=== PATIENT | female | born 1985 | race Caucasian/White ===

== ENCOUNTER 2016-11-08 19:15 | Emergency (ER) | payer SELFPAY ==
--- NOTE | 2016-11-08 19:43 | Emergency Department Record ---
History of Present Illness - General Stated complaint: DENTAL PAIN Source: Patient Mode of Arrival: Ambulatory Limitations: No limitations - History of Present Illness Initial comments: 31 yo female presents to ED with a CC of worsening dental infection and facial swelling symptoms. Patient reports that she was seen by her dentist this morning for dental infection, underwent incision and drainage of the gingival region and was started on Amoxicillin for her symptoms. Patient was unable to undergo extraction of the tooth due to elevated blood sugar symptoms. Patient denies fevers, chills, or recent illness symptoms. Patient is IDDM since last year. MD complaint: Tooth pain Onset/Timin -: Days(s) Severity: Moderate Quality: Aching Consistency: Constant Improves with: None Worsens with: None Context- Dental: History of dental caries Associated Symptoms: Other (facial swelling) - Related Data Home Medications Medication Instructions Recorded Confirmed Last Taken Insulin Glargine,Hum.rec.anlog 10 unit SQ BID 11/08/16 11/08/16 11/08/16 [Lantus] Insulin Lispro [Humalog] 1 unit SQ TID 11/08/16 11/08/16 Unknown Allergies Allergy/AdvReac Type Severity Reaction Status Date / Time No Known Drug Allergies Allergy Verified 11/08/16 19:32 Review of Systems Constitutional: Denies: Chills, Fever, Malaise, Night sweats Eyes: Denies: Eye discharge, Eye pain ENT: Reports: Dental pain, Other (facial swelling). Denies: Congestion, Ear pain Respiratory: Denies: Cough, Dyspnea Cardiovascular: Denies: Chest pain, Dyspnea on exertion Endocrine: Denies: Fatigue, Heat or cold intolerance Gastrointestinal: Denies: Abdominal pain, Nausea, Vomiting Genitourinary: Denies: Incontinence, Retention Musculoskeletal: Denies: Arthralgia, Back pain, Gout, Joint swelling Skin: Denies: Bruising, Change in color Neurological: Denies: Abnormal gait, Confusion, Headache, Seizure Psychiatric: Denies: Anxiety Hematological/Lymphatic: Denies: Anemia, Blood Clots Physical Exam - General General Appearance: Alert, Oriented x3, Cooperative, Mild distress Limitations: No limitations - Head Head exam: Atraumatic Head exam detail: General tenderness, Other (STS to the right face infra- orbital region on examination). negative: Abrasion, Contusion, Shelton's sign, Hematoma, Laceration - Eye Eye exam: Periorbital swelling, Periorbital tenderness. negative: Conjunctival injection, Scleral icterus - ENT Ear exam: negative: Auricular hematoma, Auricular trauma Nasal Exam: negative: Active bleeding, Discharge, Dried blood, Foreign body Mouth exam: negative: Drooling, Laceration, Muffled voice, Tongue elevation Teeth exam: Dental caries, Dental tenderness # Throat exam: negative: R peritonsillar mass, L peritonsillar mass - Neck Neck exam: Normal inspection. negative: Meningismus, Tenderness - Respiratory Respiratory exam: Normal lung sounds bilaterally. negative: Rales, Respiratory distress, Rhonchi, Stridor - Cardiovascular Cardiovascular Exam: Normal rhythm, Normal heart sounds, Tachycardia - GI/Abdominal GI/Abdominal exam: Soft. negative: Rebound, Rigid, Tenderness - Rectal Rectal exam: Deferred - exam: Deferred - Extremities Extremities exam: Normal inspection. negative: Calf tenderness, Pedal edema, Tenderness - Back Back exam: Denies: CVA tenderness (R), CVA tenderness (L) - Neurological Neurological exam: Alert, Normal gait, Oriented X3 - Psychiatric Psychiatric exam: Normal affect, Normal mood - Skin Skin exam: Normal color. negative: Abrasion Type of lesion: negative: abrasion Course Vital Signs 11/08/16 19:25 Temperature 98.5 F Pulse Rate [ 125 H Pulse Ox Probe] Respiratory 24 Rate Blood Pressure 142/108 [Left Arm] Pulse Ox 97 - Reevaluation(s) Reevaluation #1: 11/08/16 20:06 Labs reviewed, Glucose 493, labs are otherwise grossly unremarkable for an acute process. Patient was updated on all results, will administer Insulin IV for hyperglycemia as well as patient will be receiving solumedrol in ED. Reevaluation #2: 11/08/16 20:24 Case was discussed with Dr. Wells, will accept transfer to [facility] for admission and further evaluation. Reevaluation #3: 11/08/16 20:39 Patient was updated on plan for transfer and agrees with plan as discussed. EMS called for transfer. Medical Decision Making - Lab Data Result diagrams: 11/08/16 19:40 11/08/16 19:40 Disposition Disposition: Transfer Clinical Impression: Dental caries, IDDM (insulin dependent diabetes mellitus) Disposition: Acute Care Hospital Transfer Transfer To: [facility] Reason For Transfer: [id number]-[id number] surgery consultation Accepting Physician: Munzer Time Discussed w/Accepting Physician: 20:25 Condition: (2) Stable Time of Disposition: 20:25 Quality - Quality Measures Quality Measures: N/A - Blood Pressure Screening Blood Pressure Classification: Hypertensive Reading Systolic Measurement: 126 Diastolic Measurement: 94 Screening for High Blood Pressure: < First Hypertensive BP, F/U Documented > [ G8950] First Hypertensive Follow-up Interventions: Referral to alternative/primary care provider.
[2016-11-08 19:48] LABS: BASO % 0.2 % (0-6); EOS % 1.2 % (0-6); GRAN % 69.8 % (47-80); HEMOGLOBIN 15.5 gm/dl (11.6-16.0); LYMPH % 21.3 % (16-45); MEAN CELL VOLUME 83.2 fl (81-97); MEAN PLATELET VOLUME 10.9 fl (7.4-10.4); MONO % 7.5 % (0-9); PLATELET COUNT 209 K/uL (130-400); RED BLOOD COUNT 5.17 M/uL (3.80-5.40); RED CELL DISTRIBUTION WIDTH 13.1 % (11.5-14.5); WHITE BLOOD COUNT W/O DIFF 10.7 K/uL (4.2-12.2)
[2016-11-08 20:00] LABS: ALB/GLOB RATIO 1.4 (1.1-1.8); ALBUMIN 4.9 gm/dL (3.5-5.0); ALKALINE PHOSPHATASE 172 U/L (38-126); ALT/SGPT 39 U/L (9-52); ANION GAP 13.5 (7-16); AST/SGOT 19 U/L (14-36); BILIRUBIN,TOTAL 0.93 mg/dL (0.2-1.3); BLOOD UREA NITROGEN 13 mg/dL (7-17); CARBON DIOXIDE 27.5 mmol/L (22-30); CREATININE 0.5 mg/dL (0.52-1.04); EST GLOMERULAR FILTRATION RATE > 60 ml/min; TOTAL PROTEIN 8.4 gm/dL (6.3-8.2)
[2016-11-08 20:06] LABS: GLUCOSE,RANDOM 493 mg/dL (70-110)
[2016-11-08] MEDS: CLINDAMYCIN 600MG/4ML VIAL 600 MG in 0.9 % SODIUM CHLORIDE 100ML 100 ML IV ONE (20:07)
[2016-11-08] MEDS: METHYLPREDNISOLONE PF 125MG/VIAL IVP SCH (20:07)
[2016-11-08] MEDS: 0.9 % SODIUM CHLORIDE 1000ML 1,000 ML IV SCH (20:09)
[2016-11-08] MEDS: HUMULIN R 100 UNIT/ML VIAL IV ONE (20:19)
== END 2016-11-08 21:18 | disposition short-term general hospital (02) ==
LOC: ER 19:15
DX: E11.65 Type 2 diabetes mellitus with hyperglycemia (principal); Z79.4 Long term (current) use of insulin; K02.9 Dental caries, unspecified
CPT/HCPCS: 36416; 80053; 82948; 85025; 96365; 96375; 99284; J2930; J7030

== ENCOUNTER 2017-02-01 22:07 | Inpatient (IN) | payer SELFPAY ==
--- NOTE | 2017-02-01 22:31 | Emergency Department Record ---
History of Present Illness - General Chief complaint: Hypergylcemia Stated complaint: SUGAR HIGH Time Seen by Provider: 02/01/17 22:26 Source: Patient Mode of Arrival: Ambulatory - History of Present Illness Initial comments: The patient states that since her insurance ran out about a week ago she has been without her short acting insulin. She has taken her long acting as before. She is experiencing weakness, nausea without vomiting and polydypsia/ polyuria. Her sugars have been showing in the 600's and "high" on her glucometer. She denies other problems such as f,c, cp, pravin, ap, st, cough. She has not had her period in months and doesn't know why. Accu-check on arrival show 543. She is a smoker. MD Complaint: Lack of energy Onset/Timin -: Week(s) - [place] Coma Scale Eye Response: (4) Open spontaneously Motor Response: (6) Obeys commands Verbal Response: (5) Oriented Ximena Total: 15 - Related Data Allergies Allergy/AdvReac Type Severity Reaction Status Date / Time No Known Drug Allergies Allergy Verified 11/08/16 19:32 Travel Screening - Travel/Exposure Within Last 30 Days Have you traveled within the last 30 days?: No - Travel/Exposure Within Last Year Have you traveled outside the [place] in the last year?: No - Additonal Travel Details Have you been exposed to anyone with a communicable illness?: No Review of Systems Reviewed: No additional complaints except as noted below Constitutional: Reports: As per HPI. Denies: Chills, Fever, Malaise, Night sweats, Weakness, Weight change Eyes: Reports: As per HPI. Denies: Eye discharge, Eye pain, Photophobia, Vision change ENT: Reports: As per HPI. Denies: Congestion, Dental pain, Ear pain, Epistaxis , Hearing loss, Throat pain Respiratory: Reports: As per HPI. Denies: Cough, Dyspnea, Hemoptysis, Stridor, Wheezes Cardiovascular: Reports: As per HPI. Denies: Arrhythmia, Chest pain, Dyspnea on exertion, Edema, Murmurs, Orthopnea, Palpitations, Paroxysmal nocturnal dyspnea, Rheumatic Fever, Syncope Endocrine: Reports: As per HPI. Denies: Fatigue, Heat or cold intolerance, Polydipsia, Polyuria Gastrointestinal: Reports: As per HPI. Denies: Abdominal pain, Constipation, Diarrhea, Hematemesis, Hematochezia, Melena, Nausea, Vomiting Genitourinary: Reports: As per HPI. Denies: Abnormal menses, Discharge, Dyspareunia, Dysuria, Frequency, Hematuria, Incontinence, Retention, Urgency Musculoskeletal: Reports: As per HPI. Denies: Arthralgia, Back pain, Gout, Joint swelling, Myalgia, Neck pain Skin: Reports: As per HPI. Denies: Bruising, Change in color, Change in hair/ nails, Lesions, Pruritus, Rash Neurological: Reports: As per HPI. Denies: Abnormal gait, Confusion, Headache, Numbness, Paresthesias, Seizure, Tingling, Tremors, Vertigo, Weakness Psychiatric: Reports: As per HPI. Denies: Anxiety, Auditory hallucinations, Depression, Homicidal thoughts, Suicidal thoughts, Visual hallucinations Hematological/Lymphatic: Reports: As per HPI. Denies: Anemia, Blood Clots, Easy bleeding, Easy bruising, Swollen glands Past Medical History - SOCIAL HISTORY Smoking Status: Light tobacco smoker (<10/day) Alcohol Use: None Drug Use: None - RESPIRATORY Hx Respiratory Disorders: No - CARDIOVASCULAR Hx Cardio Disorders: No - NEURO Hx Neuro Disorders: No - GI Hx GI Disorders: No - Hx Genitourinary Disorders: No - ENDOCRINE Hx Endocrine Disorders: Yes Hx Diabetes: Yes (DM1) - MUSCULOSKELETAL Hx Musculoskeletal Disorders: No - PSYCH Hx Psych Problems: No - HEMATOLOGY/ONCOLOGY Hx Hematology/Oncology Disorders: No Family Medical History Any Significant Family History?: Yes Hx Diabetes: Father *Diabetes Comment: DM1 Physical Exam - General General Appearance: Alert, Oriented x3, Cooperative, No acute distress - Head Head exam: Normal inspection - Eye Eye exam: Normal appearance, PERRL Pupils: Normal accommodation - ENT ENT exam: Normal exam, Mucous membranes moist, Normal external ear exam, Normal orophraynx, TM's normal bilaterally Ear exam: Normal external inspection. negative: External canal tenderness Nasal Exam: Normal inspection. negative: Discharge, Sinus tenderness Mouth exam: Normal external inspection, Tongue normal Teeth exam: Normal inspection. negative: Dental caries Throat exam: Normal inspection. negative: Tonsillar erythema, Tonsillar exudate - Neck Neck exam: Normal inspection, Full ROM. negative: Tenderness - Respiratory Respiratory exam: Normal lung sounds bilaterally. negative: Respiratory distress - Cardiovascular Cardiovascular Exam: Regular rate, Normal rhythm, Normal heart sounds - GI/Abdominal GI/Abdominal exam: Soft, Normal bowel sounds. negative: Tenderness - Rectal Rectal exam: Deferred - exam: Deferred - Extremities Extremities exam: Normal inspection, Full ROM, Normal capillary refill. negative: Tenderness - Back Back exam: Reports: Normal inspection, Full ROM. Denies: Muscle spasm, Rash noted, Tenderness - Neurological Neurological exam: Alert, CN II-XII intact, Normal gait, Oriented X3, Reflexes normal - Psychiatric Psychiatric exam: Normal affect, Normal mood - Skin Skin exam: Dry, Intact, Normal color, Warm Course Vital Signs 02/01/17 22:20 Temperature 98.3 F Pulse Rate [ 95 H Left Brachial] Respiratory 20 Rate Blood Pressure 123/88 [Left Arm] Pulse Ox 97 - Reevaluation(s) Reevaluation #1: Patient prefers to be admitted at this facility. Insulin drip at 3mg/kg/hr to be started after 2 liters NS infused. 02/02/17 00:00 Reevaluation #2: All vital signs have remained stable through out her visit. She is wishing water to drink and something for her mild headache. Nausea has improved. 02/02/17 00:04 Reevaluation #3: Repeat BS 359 prior to starting insulin drip around 12:30 a.m. 02/02/17 01:27 Medical Decision Making - Management Options MDM Management: Additional Work-up Planned (e.g. ADM/Transfer/OP Study) ( Admission for DKA.) - Data Complexity MDM Data: Labs Ordered and/or Reviewed, EKG Ordered and/or Reviewed - Lab Data Result diagrams: 02/01/17 22:30 02/02/17 01:00 - EKG Data -: EKG Interpreted by Mn EKG: No Acute Changes Disposition Disposition: Admit Clinical Impression: DKA, type 1 Qualifiers: Diabetes mellitus complication detail: without coma Qualified Code(s): E10.10 - Type 1 diabetes mellitus with ketoacidosis without coma Disposition: Still a Patient at [facility] Decision to Admit: Admit from ER Decision to Admit Date: 02/02/17 Decision to Admit Time: 00:02 Accepting Physician: Dr. Alexis Phipps/ FABIAN Xiong Time Discussed w/Accepting Physician: 06:30 Condition: (3) Guarded Forms: Patient Portal Access Quality - Quality Measures Quality Measures: N/A - Blood Pressure Screening Does Patient Have Any of the Following: No Blood Pressure Classification: Normal BP Reading Systolic Measurement: 116 Diastolic Measurement: 77 Screening for High Blood Pressure: < Normal BP, F/U Not Required > [G8783]
[2017-02-01] MEDS ORDERED: 0.9 % SODIUM CHLORIDE 1,000 ML BAG IV ONE (22:36)
[2017-02-01] MEDS ORDERED: ONDANSETRON HCL IV 4 MG/2 ML VIAL IVP ONE (22:36)
[2017-02-01 22:41] LABS: URINE APPEARANCE CLEAR; URINE BILIRUBIN NEGATIVE (NEGATIVE); URINE BLOOD TRACE-I (NEGATIVE); URINE COLOR YELLOW; URINE LEUKOCYTE ESTERASE NEGATIVE (NEGATIVE); URINE NITRITE NEGATIVE (NEGATIVE); URINE PROTEIN NEGATIVE (NEGATIVE); URINE UROBILINOGEN 0.2 E.U./dL (0.20 - 1.00)
[2017-02-01 22:46] LABS: BASO % 0.2 % (0-6); EOS % 0.4 % (0-6); GRAN % 75.4 % (47-80); HEMATOCRIT 44.8 % (35.0-47.0); HEMOGLOBIN 16.5 gm/dl (11.6-16.0); LYMPH % 20.3 % (16-45); MEAN CELL VOLUME 84.5 fl (81-97); MEAN CORPUSCULAR HEMOGLOBIN 31.1 pg (27-33); MEAN CORPUSCULAR HGB CONC 36.8 g/dl (32-36); MEAN PLATELET VOLUME 11.5 fl (7.4-10.4); MONO % 3.7 % (0-9); PLATELET COUNT 334 K/uL (130-400); RED CELL DISTRIBUTION WIDTH 12.5 % (11.5-14.5); WHITE BLOOD COUNT W/O DIFF 9.3 K/uL (4.2-12.2)
[2017-02-01 22:50] LABS: BARBITURATE SCREEN URINE NOT DETECTED; BENZODIAZEPINE SCREEN URINE NOT DETECTED; METHADONE SCREEN URINE DETECTED; TRICYCLIC ANTIDEPRESSANT SCRN NOT DETECTED
[2017-02-01 22:51] LABS: AMPHETAMINE SCREEN URINE NOT DETECTED; COCAINE SCREEN URINE NOT DETECTED; METHAMPHETAMINE SCREEN NOT DETECTED; OPIATE SCREEN URINE NOT DETECTED; OXYCODONE SCREEN URINE NOT DETECTED; PHENCYCLIDINE SCREEN URINE NOT DETECTED; PROPOXYPHENE SCREEN URINE NOT DETECTED; THC SCREEN URINE NOT DETECTED
[2017-02-01 22:57] LABS: URINE GLUCOSE (UA) >=1000 mg/dL (NEGATIVE)
[2017-02-01 22:58] LABS: URINE KETONE 80 mg/dL (NEGATIVE)
[2017-02-01 23:01] LABS: HCG,QUALITATIVE URINE NEGATIVE (NEGATIVE); URINE EPITHELIAL CELLS 0 - 2 (FEW); URINE RBC 0 - 2 (NONE SEEN); URINE WBC 0 - 2 (0-2/hpf)
[2017-02-01 23:04] LABS: ALB/GLOB RATIO 1.3 (1.1-1.8); ALKALINE PHOSPHATASE 178 U/L (35-104); ALT/SGPT 15 U/L (<33); AST/SGOT 24 U/L (10.0-35.0); BLOOD UREA NITROGEN 20 mg/dL (6-20); CREATININE 0.8 mg/dL (0.5-0.9); EST GLOMERULAR FILTRATION RATE > 60 mL/min; TOTAL PROTEIN 8.9 g/dL (6.6-8.7)
[2017-02-01 23:10] LABS: GLUCOSE,RANDOM 589 mg/dL (74-109)
[2017-02-01 23:24] LABS: ACETONE,SERUM POSITIVE (NEGATIVE)
[2017-02-01] MEDS ORDERED: HUMULIN R 100 UNIT/ML VIAL SQ ONE (23:28)
[2017-02-01] MEDS ORDERED: POTASSIUM CHL 20MEQ IN 1L NS 20 MEQ in 0.9 % SODIUM CHLORIDE 1000ML 1 BAG IV ONE ×2 (23:29)
[2017-02-01] MEDS ORDERED: INSULIN REGULAR, HUMAN 100 UNIT in 0.9 % SODIUM CHLORIDE 100ML 100 ML IV SCH ×4 (23:30→23:55)
[2017-02-02] MEDS ORDERED: ACETAMINOPHEN 325 MG TAB PO ONE (00:05)
[2017-02-02 01:32] LABS: ACETONE,SERUM POSITIVE (NEGATIVE)
[2017-02-02 01:38] LABS: BLOOD UREA NITROGEN 16 mg/dL (6-20); CREATININE 0.7 mg/dL (0.5-0.9); EST GLOMERULAR FILTRATION RATE > 60 mL/min; GLUCOSE,RANDOM 353 mg/dL (74-109)
[2017-02-02] MEDS ORDERED: ACETAMINOPHEN 325 MG TAB PO PRN (02:07)
[2017-02-02] MEDS ORDERED: ONDANSETRON HCL IV 4 MG/2 ML VIAL IVP PRN (02:07)
[2017-02-02] MEDS: POTASSIUM CHLORIDE/D5-0.45NACL 20 MEQ/1,000 ML BAG IV SCH ×2 (02:12→11:50)
[2017-02-02] MEDS ORDERED: FLU VAC QS 2017-18 (INPT, 6MO+) 60MCG/0.5ML IM ONE (02:36)
[2017-02-02 03:36] LABS: ACETONE,SERUM POSITIVE (NEGATIVE)
[2017-02-02 03:45] LABS: BLOOD UREA NITROGEN 15 mg/dL (6-20); CREATININE 0.6 mg/dL (0.5-0.9); EST GLOMERULAR FILTRATION RATE > 60 mL/min; GLUCOSE,RANDOM 254 mg/dL (74-109)
[2017-02-02 05:28] LABS: ACETONE,SERUM POSITIVE (NEGATIVE)
[2017-02-02 06:38] LABS: BLOOD UREA NITROGEN 14 mg/dL (6-20); CREATININE 0.6 mg/dL (0.5-0.9); EST GLOMERULAR FILTRATION RATE > 60 mL/min; GLUCOSE,RANDOM 233 mg/dL (74-109)
[2017-02-02 07:41] LABS: ACETONE,SERUM POSITIVE (NEGATIVE)
[2017-02-02] MEDS: 0.9 % SODIUM CHLORIDE 1000ML 1,000 ML IV PRN ×3 (08:00→23:10)
[2017-02-02 08:05] LABS: BLOOD UREA NITROGEN 13 mg/dL (6-20); CREATININE 0.6 mg/dL (0.5-0.9); EST GLOMERULAR FILTRATION RATE > 60 mL/min; GLUCOSE,RANDOM 195 mg/dL (74-109)
[2017-02-02 10:37] LABS: BLOOD UREA NITROGEN 13 mg/dL (6-20); CREATININE 0.5 mg/dL (0.5-0.9); EST GLOMERULAR FILTRATION RATE > 60 mL/min; GLUCOSE,RANDOM 141 mg/dL (74-109)
[2017-02-02 10:43] LABS: ACETONE,SERUM POSITIVE (NEGATIVE)
[2017-02-02] MEDS: NOVOLOG FLEXPEN (INSULIN ASPART) 100 UNITS/ML SQ SCH ×2 (11:35→16:57)
[2017-02-02] MEDS: METHADONE HCL 5 MG TABLET PO SCH (15:57)
[2017-02-02] MEDS ORDERED: HUMULIN R 100 UNIT/ML VIAL SC ONE (22:00)
[2017-02-02] MEDS: LEVEMIR FLEXTOUCH 100 UNIT/ML INSULIN PEN SQ SCH (22:15)
--- NOTE | 2017-02-03 07:20 | RADIOLOGY REPORT ---
EXAM: CHEST, TWO VIEWS HISTORY: CHEST PAIN. TECHNIQUE: Frontal and lateral views of the chest were obtained. Comparison: None. FINDINGS: The heart size is normal. The lungs are clear. No pneumothorax. IMPRESSION: NEGATIVE CHEST EXAMINATION. JOB NUMBER: [id number] MTDD
[2017-02-03] MEDS: 0.9 % SODIUM CHLORIDE 1000ML 1,000 ML IV PRN (07:30)
[2017-02-03] MEDS: NOVOLOG FLEXPEN (INSULIN ASPART) 100 UNITS/ML SQ SCH ×2 (08:06→12:41)
[2017-02-03] MEDS: METHADONE HCL 5 MG TABLET PO SCH (10:39)
[2017-02-03] MEDS: LEVEMIR FLEXTOUCH 100 UNIT/ML INSULIN PEN SQ SCH (10:40)
[2017-02-03 11:30] LABS: ALB/GLOB RATIO 1.3 (1.1-1.8); ALBUMIN 3.1 g/dL (4.0-5.0); ALKALINE PHOSPHATASE 88 U/L (35-104); ALT/SGPT 8 U/L (<33); AST/SGOT 12 U/L (10.0-35.0); BLOOD UREA NITROGEN 12 mg/dL (6-20); CREATININE 0.4 mg/dL (0.5-0.9); EST GLOMERULAR FILTRATION RATE > 60 mL/min; GLUCOSE,RANDOM 242 mg/dL (74-109); TOTAL PROTEIN 5.4 g/dL (6.6-8.7)
--- NOTE | 2017-02-03 14:53 | History & Physical ---
History of Present Illness - Date of Service Date of Service for History & Physical: 02/02/17 - History of Present Illness Admitting Diagnosis: DKA History of Present Illness: 31yo female with CC of weakness. She has history of Type 1 Diabetes mellitus diagnosed at age 30, heroin addiction currently receiving medication assisted therapy at methadone clinic, and is a smoker. The patient states that since her insurance ran out about a week ago she has been without her short acting insulin. She has taken her long acting as before. She is experiencing weakness, nausea without vomiting and polydypsia/ polyuria. Her sugars have been showing in the 600's and "high" on her glucometer. She denies other problems such as cp, pravin, ap, st, cough. While in the ED, patient had EKG that showed left atrial enlargement but no other changes. Her first CMP returned with significant abnormalities. Her Glucose was 589. Sodium 128, potassium 5.1, Chloride 84, bicarb 13, AG 31. Venous ph was low at 7.01 and urine was positive for acetone. Her lactic acid was also elevated at 2.4. She had a CXR which was negative and urine was negative for infection, but was positive for ketones, glucose. Patient received a 15units of regular insulin along with 2L NS prior to starting insulin drip at 3mg/kg/hr. She was admitted for DKA. 02/02/17- Patient reports feeling much better today. she says she no longer feels weak or nauseated. she is starting to get hungry and would like to eat. She says prior to coming in she was very thirsty and having to urinate very frequently. These have improved significantly. She denies any chest pain, shortness of breath, headache or confusion. Says she only recently found out she was diabetic last year. She says she had testing done to confirm that she is a type 1 diabetic. She was previously on medicaid but says it "shut off" randomly about 3 weeks ago and she couldn't get her novolog. Has plenty of lantus at home and has been taking her 15units twice daily. She does follow at the methadone clinic for heroin addiction and denies missing any days. [place] [facility] [place] - Travel/Exposure Within Last 30 Days Have you traveled within the last 30 days?: No - Travel/Exposure Within Last Year Have you traveled outside the [place] in the last year?: No - Additonal Travel Details Have you been exposed to anyone with a communicable illness?: No - Travel Symptoms Symptom Screening: None Review of Systems Constitutional: Reports: As per HPI. Denies: Chills, Fever, Malaise, Night sweats, Weakness, Weight change Eyes: Reports: As per HPI. Denies: Eye discharge, Eye pain, Photophobia, Vision change ENT: Reports: As per HPI. Denies: Congestion, Dental pain, Ear pain, Epistaxis , Hearing loss, Throat pain Respiratory: Reports: As per HPI. Denies: Cough, Dyspnea, Hemoptysis, Stridor, Wheezes Cardiovascular: Reports: As per HPI. Denies: Arrhythmia, Chest pain, Dyspnea on exertion, Edema, Murmurs, Orthopnea, Palpitations, Paroxysmal nocturnal dyspnea, Rheumatic Fever, Syncope Endocrine: Reports: As per HPI. Denies: Fatigue, Heat or cold intolerance, Polydipsia, Polyuria Gastrointestinal: Reports: As per HPI. Denies: Abdominal pain, Constipation, Diarrhea, Hematemesis, Hematochezia, Melena, Nausea, Vomiting Genitourinary: Reports: As per HPI. Denies: Abnormal menses, Discharge, Dyspareunia, Dysuria, Frequency, Hematuria, Incontinence, Retention, Urgency Musculoskeletal: Reports: As per HPI. Denies: Arthralgia, Back pain, Gout, Joint swelling, Myalgia, Neck pain Skin: Reports: As per HPI. Denies: Bruising, Change in color, Change in hair/ nails, Lesions, Pruritus, Rash Neurological: Reports: As per HPI. Denies: Abnormal gait, Confusion, Headache, Numbness, Paresthesias, Seizure, Tingling, Tremors, Vertigo, Weakness Psychiatric: Reports: As per HPI. Denies: Anxiety, Auditory hallucinations, Depression, Homicidal thoughts, Suicidal thoughts, Visual hallucinations Hematological/Lymphatic: Reports: As per HPI. Denies: Anemia, Blood Clots, Easy bleeding, Easy bruising, Swollen glands Past Medical History - SOCIAL HISTORY Smoking Status: Light tobacco smoker (<10/day) - RESPIRATORY Hx Respiratory Disorders: No - CARDIOVASCULAR Hx Cardio Disorders: No - NEURO Hx Neuro Disorders: No - GI Hx GI Disorders: No - Hx Genitourinary Disorders: No - ENDOCRINE Hx Endocrine Disorders: Yes Hx Diabetes: Yes (DM1) - MUSCULOSKELETAL Hx Musculoskeletal Disorders: No - PSYCH Hx Psych Problems: No - HEMATOLOGY/ONCOLOGY Hx Hematology/Oncology Disorders: No Family Medical History Any Significant Family History?: Yes Hx Diabetes: Father *Diabetes Comment: DM1 H&P Meds/Allergies - Allergies Allergies: Allergies Allergy/AdvReac Type Severity Reaction Status Date / Time No Known Drug Allergies Allergy Verified 11/08/16 19:32 - Home Medications Previous Rx's Medication Instructions Recorded Blood Sugar Diagnostic [Glucose 1 each QID #120 strip 02/03/17 Test Strip] Insulin Regular, Human [Novolin R] 1 unit SQ TIDINS #1 vial 02/03/17 Methadone HCl [Dolophine] 10 mg PO DAILY tablet 02/03/17 Syringe and Needle,Insulin,1Ml 1 each QID #120 disp.syrin 02/03/17 [Insulin Syringe] - Active Medications Active Medications: Current Medications Acetaminophen (Tylenol 325mg) 650 mg PO Q6H PRN PRN Reason: Pain - General Sodium Chloride () 1,000 mls @ 125 mls/hr IV .Q8H PRN PRN Reason: LARGE VOLUME IV Last Admin: 02/03/17 07:30 Dose: 125 mls/hr Insulin Aspart (Novolog Flexpen) 1 unit SQ TIDINS JESSICA PRN Reason: Protocol Last Admin: 02/03/17 12:41 Dose: 6 unit Insulin Detemir (Levemir Flextouch) 15 unit SQ BID COUNTS INCLUDE 234 BEDS AT THE [facility] Last Admin: 02/03/17 10:40 Dose: 15 unit Methadone HCl (Dolophine) 10 mg PO DAILY COUNTS INCLUDE 234 BEDS AT THE [facility] Stop: 02/09/17 10:01 Last Admin: 02/03/17 10:39 Dose: 10 mg Ondansetron HCl (Zofran) 4 mg IVP Q8H PRN PRN Reason: NAUSEA Physical Exam - Vital Signs Vital Signs: Vital Signs - Last 24 Hrs Temp Pulse Pulse Resp BP BP Pulse Ox 02/03/17 09:53 97.8 F 105/71 02/03/17 09:00 70 67 16 02/03/17 08:30 97.8 F 67 16 105/71 97 02/03/17 06:00 97.6 F 57 L 16 110/73 95 02/02/17 21:00 72 72 16 02/02/17 20:11 97.7 F 65 16 90/61 97 02/02/17 15:30 98.0 F 71 18 110/61 98 - General General Appearance: Alert, Oriented x3, Cooperative, No acute distress - Head Head exam: Normal inspection - Eye Eye exam: Normal appearance, PERRL Pupils: Normal accommodation - ENT ENT exam: Normal exam, Mucous membranes moist, Normal external ear exam, Normal orophraynx, TM's normal bilaterally Ear exam: Normal external inspection. negative: External canal tenderness Nasal Exam: Normal inspection. negative: Discharge, Sinus tenderness Mouth exam: Normal external inspection, Tongue normal Teeth exam: Normal inspection. negative: Dental caries Throat exam: Normal inspection. negative: Tonsillar erythema, Tonsillar exudate - Neck Neck exam: Normal inspection, Full ROM. negative: Tenderness - Respiratory Respiratory exam: Normal lung sounds bilaterally. negative: Respiratory distress - Cardiovascular Cardiovascular Exam: Regular rate, Normal rhythm, Normal heart sounds - GI/Abdominal GI/Abdominal exam: Soft, Normal bowel sounds. negative: Tenderness - Rectal Rectal exam: Deferred - exam: Deferred - Extremities Extremities exam: Normal inspection, Full ROM, Normal capillary refill. negative: Tenderness - Back Back exam: Reports: Normal inspection, Full ROM. Denies: Muscle spasm, Rash noted, Tenderness - Neurological Neurological exam: Alert, CN II-XII intact, Normal gait, Oriented X3, Reflexes normal - Psychiatric Psychiatric exam: Normal affect, Normal mood - Skin Skin exam: Dry, Intact, Normal color, Warm Results - Labs Result Diagrams: 02/01/17 22:30 02/03/17 11:00 Labs Last 24 Hours: Laboratory Results - last 24 hr 02/02/17 02/02/17 02/02/17 08:07 16:55 22:00 Sodium Potassium Chloride Carbon Dioxide Anion Gap BUN Creatinine Estimated GFR POC Glucose Cancelled 432 H 354 H Random Glucose Calcium Total Bilirubin AST ALT Alkaline Phosphatase Total Protein Albumin Globulin Albumin/Globulin Ratio 02/03/17 02/03/17 02/03/17 07:19 10:00 11:00 Sodium 139 Potassium 3.8 Chloride 105 Carbon Dioxide 27.0 Anion Gap 7.0 BUN 12 Creatinine 0.4 L Estimated GFR > 60 POC Glucose 175 H Cancelled Random Glucose 242 H Calcium 7.6 L Total Bilirubin 0.20 AST 12 ALT 8 Alkaline Phosphatase 88 Total Protein 5.4 L Albumin 3.1 L Globulin 2.3 Albumin/Globulin Ratio 1.3 - Imaging and Cardiology CT scan - abdomen Status: Report reviewed Chest x-ray Status: Report reviewed VTE H&P Assessment - Risk for VTE Risk for VTE: Yes Risk Level: Very Low Risk Assessment Date: 02/02/17 Risk Assessment Time: 11:00 VTE Orders Placed or Will Be Placed: Yes Plan - Inpatient Certification Inpatient Certification: Admit to inpatient care: Based on my medical assessment, after consideration of patient's risk factors (age, co-morbidities and patient presenting symptoms and acuity), I expect that this patient will remain in the hospital greater than or equal to two midnights and that the services needed warrant inpatient care because: Patient Risk Factors: [Diabetic ketoacidosis, problem with health insurance] Estimated length of stay: [48-72h] The patient may reasonably be expected to be discharged or transferred to a hospital within 96 hours after admission to [facility]. Services needed: [Insulin drip, IV fluids, social work consultation] Post hospital care (if known): [] I certify that my determination is in accordance with my understanding of Medicare requirements for reasonable and necessary inpatient services. 02/03/17 20:14 - Detailed Diagnosis and Plan (1) DKA, type 1 Status: Acute Qualifiers: Diabetes mellitus complication detail: without coma Qualified Code(s): E10.10 - Type 1 diabetes mellitus with ketoacidosis without coma Base Code: E10.10 - TYPE 1 DIABETES MELLITUS WITH KETOACIDOSIS WITHOUT COMA Comment: 02/02/17- resolving DKA. Had insulin drip throughout the night until BG dropped below 250. fluids were changed per protocol. Her CMP has improved significantly. AG closed at 13 this morning, bicarb up to 19 from 13. Her sodium is up to 133 and her potassium dropped from 5.1 to 4.4. Lactic acid down to 1.1. BG is stable under 200. polydipsia/polyuria and nausea have all resolved. -transition to sliding scale novolog TID with meals -continue her lantus 15 units BID -continue NS at 125cc/hr -advance diet to ADA -continue to monitor vitals q8H -repeat labs qam -social work consulted to discuss insurance issues. (2) Long-term current use of methadone for opiate dependence Status: Acute Base Code: F11.20 - OPIOID DEPENDENCE, UNCOMPLICATED Comment: 02/02/17- Currently receiving MAT from methadone clinic in [place]. She was unable to find someone to bring her medication from the clinic so therefore we will continue her current dose daily to avoid withdrawal. -methadone 10mg po daily. -she will continue going to the clinic upon discharge (3) DVT prophylaxis Status: Acute Base Code: [id number] - Comment: 02/02/17- patient is low risk for dvt -will encourage ambulation (4) Full code status Status: Acute Base Code: Z78.9 - OTHER SPECIFIED HEALTH STATUS Comment: - patient is full code
--- NOTE | 2017-02-03 15:00 | Discharge Summary ---
Providers Discharge Summary Date: 02/03/17 Date of admission: 02/02/17 01:52 Expected Date of Discharge: 02/03/17 Attending physician: Brett Phipps Consults: Consult Orders 02/02/17 07:12 Consult - Case Management Now Comment: Reason For Exam: lost medicaid Physical Exam - Vital Signs Vital Signs: Vital Signs - Last 24 Hrs Temp Pulse Pulse Resp BP BP Pulse Ox 02/03/17 09:53 97.8 F 105/71 02/03/17 09:00 70 67 16 02/03/17 08:30 97.8 F 67 16 105/71 97 02/03/17 06:00 97.6 F 57 L 16 110/73 95 02/02/17 21:00 72 72 16 02/02/17 20:11 97.7 F 65 16 90/61 97 02/02/17 15:30 98.0 F 71 18 110/61 98 - General General Appearance: Alert, Oriented x3, Cooperative, No acute distress - Head Head exam: Normal inspection - Eye Eye exam: Normal appearance, PERRL Pupils: Normal accommodation - ENT ENT exam: Normal exam, Mucous membranes moist, Normal external ear exam, Normal orophraynx, TM's normal bilaterally Ear exam: Normal external inspection. negative: External canal tenderness Nasal Exam: Normal inspection. negative: Discharge, Sinus tenderness Mouth exam: Normal external inspection, Tongue normal Teeth exam: Normal inspection. negative: Dental caries Throat exam: Normal inspection. negative: Tonsillar erythema, Tonsillar exudate - Neck Neck exam: Normal inspection, Full ROM. negative: Tenderness - Respiratory Respiratory exam: Normal lung sounds bilaterally. negative: Respiratory distress - Cardiovascular Cardiovascular Exam: Regular rate, Normal rhythm, Normal heart sounds - GI/Abdominal GI/Abdominal exam: Soft, Normal bowel sounds. negative: Tenderness - Rectal Rectal exam: Deferred - exam: Deferred - Extremities Extremities exam: Normal inspection, Full ROM, Normal capillary refill. negative: Tenderness - Back Back exam: Reports: Normal inspection, Full ROM. Denies: Muscle spasm, Rash noted, Tenderness - Neurological Neurological exam: Alert, CN II-XII intact, Normal gait, Oriented X3, Reflexes normal - Psychiatric Psychiatric exam: Normal affect, Normal mood - Skin Skin exam: Dry, Intact, Normal color, Warm Hospitalization - Hospitalization Admission Diagnosis: DKA - Problem List/Discharge Diagnosis (1) DKA, type 1 Status: Acute Discharge Diagnosis: Diabetes mellitus complication detail: without coma Qualified Code(s): E10.10 - Type 1 diabetes mellitus with ketoacidosis without coma Base Code: E10.10 - TYPE 1 DIABETES MELLITUS WITH KETOACIDOSIS WITHOUT COMA Comment: 02/03/17- DKA resolved. AG of 12 this morning. Bicarb normalized at 27. sodium, potassium and chloride have all returned to normal range. MLC of DKA is her running out of novolog for past 3 weeks. no evidence of infection on CXR or UA. -will plan to discharge home today. Social work met with patient and she has follow up at PCP on and will be meeting with someone in their office to get her medicaid set back up. -contacted [facility] and Novolin R is only $24 a vial and patient is willing and able to pay this amount until she can get her insurance coverage back in order. she has plenty of lantus at home -new scripts for Novolin R TID along with sliding scale, syringes with needles and test strips sent to [facility]. has lancets and meter at home. -continue her lantus 15 units BID -board certified orthodontist met with patient and provided her with handouts on diabtetic diet. asked patient to find out if her pcp could refer her to classes or to a board certified orthodontist as mani once insurance is active. -follow up on with pcp as scheduled (2) DVT prophylaxis Status: Acute Base Code: [id number] - Comment: 02/03/17- patient is low risk for dvt -will encourage ambulation (3) Full code status Status: Acute Base Code: Z78.9 - OTHER SPECIFIED HEALTH STATUS Comment: - patient is full code (4) Long-term current use of methadone for opiate dependence Status: Acute Base Code: F11.20 - OPIOID DEPENDENCE, UNCOMPLICATED Comment: 02/03/17- Currently receiving MAT from methadone clinic in [place]. -methadone 10mg po daily. Gave her dose for today since she will not be able to make it to the clinic by the time she is discharged. -she will continue going to the clinic resuming tomorrow. - Hospitalization Course Disposition: Home, Self-Care Hospital Course: 31yo female with CC of weakness. She has history of Type 1 Diabetes mellitus diagnosed at age 30, heroin addiction currently receiving medication assisted therapy at methadone clinic, and is a smoker. The patient states that since her insurance ran out about a week ago she has been without her short acting insulin. She has taken her long acting as before. She is experiencing weakness, nausea without vomiting and polydypsia/ polyuria. Her sugars have been showing in the 600's and "high" on her glucometer. She denies other problems such as cp, pravin, ap, st, cough. While in the ED, patient had EKG that showed left atrial enlargement but no other changes. Her first CMP returned with significant abnormalities. Her Glucose was 589. Sodium 128, potassium 5.1, Chloride 84, bicarb 13, AG 31. Venous ph was low at 7.01 and urine was positive for acetone. Her lactic acid was also elevated at 2.4. She had a CXR which was negative and urine was negative for infection, but was positive for ketones, glucose. Patient received a 15units of regular insulin along with 2L NS prior to starting insulin drip at 3mg/kg/hr. She was admitted for DKA. 02/02/17- Patient reports feeling much better today. she says she no longer feels weak or nauseated. she is starting to get hungry and would like to eat. She says prior to coming in she was very thirsty and having to urinate very frequently. These have improved significantly. She denies any chest pain, shortness of breath, headache or confusion. Says she only recently found out she was diabetic last year. She says she had testing done to confirm that she is a type 1 diabetic. She was previously on medicaid but says it "shut off" randomly about 3 weeks ago and she couldn't get her novolog. Has plenty of lantus at home and has been taking her 15units twice daily. She does follow at the methadone clinic for heroin addiction and denies missing any days. 02/03/17- Patient states she is feeling really good today. she says she has had no nausea, abdominal pain, chest pain, thirst or frequent urination. She is hopeful to go home today pcp: [facility] in [place] Abnormal Labs: Abnormal Lab Results 02/02/17 02/02/17 02/02/17 Range/Units 02:00 03:20 03:20 VBG pH 7.27 L (7.33-7.43) Sodium 135 L (136-145) mmol/L Carbon Dioxide 18.0 L (22-29) mmol/L Anion Gap 18.0 H (7-16) Creatinine (0.5-0.9) mg/dL POC Glucose 249 H (70-110) mg/dL Random Glucose 254 H (74-109) mg/dL Calcium 8.3 L (8.6-10.0) mg/dL Total Protein (6.6-8.7) g/dL Albumin (4.0-5.0) g/dL 02/02/17 02/02/17 02/02/17 Range/Units 04:00 05:00 05:15 VBG pH (7.33-7.43) Sodium 133 L (136-145) mmol/L Carbon Dioxide 19.0 L (22-29) mmol/L Anion Gap (7-16) Creatinine (0.5-0.9) mg/dL POC Glucose 209 H 232 H (70-110) mg/dL Random Glucose 233 H (74-109) mg/dL Calcium 8.1 L (8.6-10.0) mg/dL Total Protein (6.6-8.7) g/dL Albumin (4.0-5.0) g/dL 02/02/17 02/02/17 02/02/17 Range/Units 06:00 07:00 07:10 VBG pH (7.33-7.43) Sodium 133 L (136-145) mmol/L Carbon Dioxide 19.0 L (22-29) mmol/L Anion Gap (7-16) Creatinine (0.5-0.9) mg/dL POC Glucose 245 H 201 H (70-110) mg/dL Random Glucose 195 H (74-109) mg/dL Calcium 8.0 L (8.6-10.0) mg/dL Total Protein (6.6-8.7) g/dL Albumin (4.0-5.0) g/dL 02/02/17 02/02/17 02/02/17 Range/Units 08:00 08:07 09:49 VBG pH 7.30 L (7.33-7.43) Sodium (136-145) mmol/L Carbon Dioxide 20.0 L (22-29) mmol/L Anion Gap (7-16) Creatinine (0.5-0.9) mg/dL POC Glucose 164 H (70-110) mg/dL Random Glucose 141 H (74-109) mg/dL Calcium 8.3 L (8.6-10.0) mg/dL Total Protein (6.6-8.7) g/dL Albumin (4.0-5.0) g/dL 02/02/17 02/02/17 02/02/17 Range/Units 10:00 11:30 16:55 VBG pH (7.33-7.43) Sodium (136-145) mmol/L Carbon Dioxide (22-29) mmol/L Anion Gap (7-16) Creatinine (0.5-0.9) mg/dL POC Glucose 157 H 196 H 432 H (70-110) mg/dL Random Glucose (74-109) mg/dL Calcium (8.6-10.0) mg/dL Total Protein (6.6-8.7) g/dL Albumin (4.0-5.0) g/dL 02/02/17 02/03/17 02/03/17 Range/Units 22:00 07:19 11:00 VBG pH (7.33-7.43) Sodium (136-145) mmol/L Carbon Dioxide (22-29) mmol/L Anion Gap (7-16) Creatinine 0.4 L (0.5-0.9) mg/dL POC Glucose 354 H 175 H (70-110) mg/dL Random Glucose 242 H (74-109) mg/dL Calcium 7.6 L (8.6-10.0) mg/dL Total Protein 5.4 L (6.6-8.7) g/dL Albumin 3.1 L (4.0-5.0) g/dL Condition at Discharge: (3) Guarded Discharge Medications - Discharge Medications Prescriptions: Blood Sugar Diagnostic [Glucose Test Strip] 1 each QID #120 strip Insulin Regular, Human [Novolin R] 1 unit SQ TIDINS #1 vial Syringe and Needle,Insulin,1Ml [Insulin Syringe] 1 each QID #120 disp.syrin Home Medications: Ambulatory Orders Insulin Glargine,Hum.rec.anlog [Lantus] 15 unit SQ BID 11/08/16 [Last Taken ] Insulin Lispro [Humalog] 1 unit SQ TID 11/08/16 [Last Taken 1 Week Ago ~01/25/17 ] Blood Sugar Diagnostic [Glucose Test Strip] 1 each QID #120 strip 02/03/17 [ Last Taken Unknown] Insulin Regular, Human [Novolin R] 1 unit SQ TIDINS #1 vial 02/03/17 [Last Taken Unknown] Methadone HCl [Dolophine] 10 mg PO DAILY tablet 02/03/17 [Last Taken Unknown] Syringe and Needle,Insulin,1Ml [Insulin Syringe] 1 each QID #120 disp.syrin 02/03/17 [Last Taken Unknown] Discharge Plan - Discharge Instructions Activity at Discharge: Resume Usual Activities As Tolerated Diet at Discharge: Diabetic Diet Instructions: Diabetic Ketoacidosis (DC), Type 1 Diabetes in Adults (DC) Additional Instructions: Continue home dose of lantus 15units qam and qpm Continue novolin R insulin three times daily before meals according to sliding scale Check blood sugar four times daily (before 3 meals and at bedtime) and keep a log Continue to follow diabetic diet and once insurance is active discuss diabetes classes with your primary care or deer farm worker Follow up with your deer farm worker as soon as possible Please call with any questions or concerns Return to ED for any new or worsening symptoms Follow up appointment at [facility] (Dr. Lai, 2nd floor) scheduled Feb 06, 9AM. Please arrive 15-30 minutes early to complete paperwork. Follow up with financial/insurance services at [facility]. Quality Measures - Quality Measures Quality Measures: Documentation of Current Medications in Medical Record, Screening for High Blood Pressure and F/U Documented - Current Medications Quality Measure: Measure #130: Documentation of Current Medications Documentation of Current Medications: <Current Medications Documented/Reviewed> [G2907] - Blood Pressure Screening Quality Measure: Screening for High Blood Pressure and Follow-Up Documented Does Patient Have Any of the Following: No Blood Pressure Classification: Normal BP Reading Systolic Measurement: 105 Diastolic Measurement: 71 Screening for High Blood Pressure: < Normal BP, F/U Not Required > [G1333] - Elder Abuse Suspicion Index EASI Reference Information: Mushtaq GROVER, Shukri C, Mirella D, Jackelin Wang.Development and validation of a tool to assist physicians identification of elder abuse: The Elder Abuse Suspicion Index (EASI ). Journal of Elder Abuse and Neglect, 2008; 20 (3): 276-300.
== END 2017-02-03 16:20 | disposition home or self-care (01) | DRG 638 ==
LOC: ER 22:07 → MEDSURG 02-02 01:52
PROVIDERS: ADMIT Internal Medicine; ATTEND Internal Medicine
DX: E10.10 Type 1 diabetes mellitus with ketoacidosis without coma (principal); F11.20 Opioid dependence, uncomplicated; F17.210 Nicotine dependence, cigarettes, uncomplicated; Z79.4 Long term (current) use of insulin
CPT/HCPCS: 36416; 71020; 80048; 80053; 80305; 81001; 81025; 82009; 82800; 82948; 83605; 85025; 90686; 93005; 93010; 96365; 96375; 99220; 99223; 99234; 99285; J2405; J3480; S0109

== ENCOUNTER 2018-02-11 21:09 | Emergency (ER) | payer SELFPAY ==
[2018-02-11] MEDS ORDERED: HUMULIN R 100 UNIT/ML VIAL SC ONE (21:10)
[2018-02-11] MEDS ORDERED: 0.9 % SODIUM CHLORIDE 1,000 ML BAG IV ONE ×2 (21:22→23:42)
--- NOTE | 2018-02-11 21:27 | Emergency Department Record ---
History of Present Illness - General Chief complaint: Hypergylcemia Stated complaint: HIGH SUGAR LEVELS Time Seen by Provider: 02/11/18 21:21 Source: Patient, Family Mode of Arrival: Ambulatory Limitations: No limitations - History of Present Illness Initial comments: 32 yo female presents with multiple concerns. She is a diabetic. She lost her medicaid about 6 months ago. She has been out of her insulin. She has used other family members insulin at times. She presents with elevated blood sugars. She has had increased thirst and increased urination. No fevers, rashes, swelling. No vomiting but she has some nausea. She has had all her teeth pulled in the summer. She has depression about not getting a permanent solution for her teeth at this point. She has not re-applied to restart her Medicaid. No current dental pain to suggest an infection. She denies any suicidal thoughts. She is aware that illegal drug use can put your life in jeopardy but she does not want to . She denies alcohol or other co- dependencies. MD Complaint: Generalized weakness -: Week(s) Location: Generalized Severity: Moderate Quality: Other Consistency: Intermittent Improves with: None Worsens with: Other (Not taking her medication) Associated Symptoms: Other (nausea) - [place] Coma Scale Eye Response: (4) Open spontaneously Motor Response: (6) Obeys commands Verbal Response: (5) Oriented [place] Total: 15 - Related Data Previous Rx's Medication Instructions Recorded Blood Sugar Diagnostic [Glucose 1 each QID #120 strip 02/03/17 Test Strip] Methadone HCl [Dolophine] 10 mg PO DAILY tablet 02/03/17 Syringe and Needle,Insulin,1Ml 1 each QID #120 disp.syrin 02/03/17 [Insulin Syringe] Clonidine HCl [Catapres] 0.1 mg PO BID #8 tablet 02/12/18 Ondansetron HCl [Zofran] 4 mg PO Q8H #15 tablet 02/12/18 Allergies Allergy/AdvReac Type Severity Reaction Status Date / Time No Known Drug Allergies Allergy Verified 11/08/16 19:32 Review of Systems Constitutional: Reports: Malaise, Weakness. Denies: Chills, Fever Eyes: Denies: Eye discharge ENT: Denies: Congestion, Throat pain Respiratory: Denies: Cough, Dyspnea Cardiovascular: Denies: Chest pain, Palpitations, Syncope Endocrine: Reports: Fatigue, Polydipsia, Polyuria Gastrointestinal: Reports: Nausea. Denies: Abdominal pain, Diarrhea, Vomiting Genitourinary: Denies: Dysuria, Urgency Musculoskeletal: Denies: Arthralgia, Back pain, Myalgia, Neck pain Skin: Denies: Bruising, Change in color, Rash Neurological: Reports: Weakness. Denies: Headache Psychiatric: Reports: Anxiety, Depression. Denies: Suicidal thoughts Hematological/Lymphatic: Denies: Blood Clots, Easy bleeding, Easy bruising Past Medical History - SOCIAL HISTORY Smoking Status: Light tobacco smoker (<10/day) - RESPIRATORY Hx Respiratory Disorders: No - CARDIOVASCULAR Hx Cardio Disorders: No - NEURO Hx Neuro Disorders: No - GI Hx GI Disorders: No - Hx Genitourinary Disorders: No - ENDOCRINE Hx Endocrine Disorders: Yes Hx Diabetes: Yes (DM1) - MUSCULOSKELETAL Hx Musculoskeletal Disorders: No - PSYCH Hx Psych Problems: No - HEMATOLOGY/ONCOLOGY Hx Hematology/Oncology Disorders: No Family Medical History Hx Diabetes: Father *Diabetes Comment: DM1 Physical Exam - General General Appearance: Alert, Oriented x3, Cooperative, No acute distress Limitations: No limitations - Head Head exam: Atraumatic, Normal inspection - Eye Eye exam: Normal appearance, PERRL. negative: Conjunctival injection, Scleral icterus - ENT ENT exam: Normal exam, Mucous membranes moist Ear exam: Normal external inspection Nasal Exam: Normal inspection Mouth exam: Normal external inspection - Neck Neck exam: Normal inspection - Respiratory Respiratory exam: Normal lung sounds bilaterally. negative: Respiratory distress - Cardiovascular Cardiovascular Exam: Regular rate, Normal rhythm, Normal heart sounds Peripheral Pulses: 2+: Radial (R), Radial (L) - GI/Abdominal GI/Abdominal exam: Soft. negative: Tenderness - Rectal Rectal exam: Deferred - exam: Deferred - Extremities Extremities exam: negative: Pedal edema - Back Back exam: Denies: CVA tenderness (R), CVA tenderness (L) - Neurological Neurological exam: Alert, Oriented X3 - Psychiatric Psychiatric exam: Normal affect, Normal mood. negative: Agitated, Anxious - Skin Skin exam: Dry, Intact, Normal color, Warm Course Vital Signs 02/11/18 21:20 Pulse Rate [ 93 H Pulse Ox Probe] Respiratory 20 Rate Pulse Ox 100 - Reevaluation(s) Reevaluation #1: Bedside accu check is "Hi" 02/11/18 21:26 02/11/18 22:13 The CBC was normal The CMP demonstrated a glucose of 640. Normal HCO3 and AG. The venous pH is normal at 7.40 The acetone is normal HCG is negative No UTI UDS is positive for opiates 02/11/18 22:30 On direct questioning the patient admits to drug use. She has been using heroin for about 3 weeks at this time. She had been on methadone but lost her PCP and medicaid in July. She has not been on Methadone since then. 02/11/18 22:31 On direct questioning she denies any suicidal thoughts. She admits that when she is in withdraw she knows she is taking the risk of with IV drug use but her intention is not to . 02/11/18 23:04 Message left with the [facility] to make a referral on behalf of the patient. 02/11/18 23:26 I SW [facility] Intake Line. The patient information was provided. Awaiting call back for the rifle case repairer. 02/11/18 23:39 Blood Glucose now 461 I SW the Access worker (Leora) at [facility] to discuss the local resources for the patient. [facility] [phone] [facility] [phone] 02/12/18 00:06 The patient informs me she has contacted the [facility] and is waiting for an appointment She was provided the Levemir pen for BID treatment of her diabetes She appears comfortable and calm We discussed the phone numbers to call in the morning again for the [facility] and she can call the [facility] number in the morning at 8am as well. She will be provided a limited RX for catapress and zofran 02/12/18 00:09 She was also aware she can go to the [facility] ED any time to request to speak to the access worker. 02/12/18 00:42 Glucose continues to decrease. 331. She is not in DKA. No nausea or vomiting. We discussed extensively the resources for her narcotic abuse, she was provided diabetes medication, no signs of withdrawal in the ED, and she was repeatedly reassured she can return anytime for help with her issues. Medical Decision Making - Lab Data Result diagrams: 02/11/18 21:30 02/11/18 21:30 Disposition Disposition: Discharge Clinical Impression: Hyperglycemia, Narcotic abuse Disposition: Home, Self-Care Condition: (1) Good Instructions: Diabetic Hyperglycemia (ED) Additional Instructions: Take the Levemir twice daily for you diabetes Check your blood sugars 3 times daily Call the numbers below in the morning to schedule appointments regarding halfway narcotic abuse treatment [facility] [phone] [facility] [phone] The number for [facility] Crisis services is [phone] The number for [facility] alcohol and drug rehabilitation is Return or be seen in the ER if you have significant withdrawal symptoms prior to your appointment Take the clonidine and zofran as directed to help with the withdrawal symptoms Prescriptions: Clonidine HCl [Catapres] 0.1 mg PO BID #8 tablet Ondansetron HCl [Zofran] 4 mg PO Q8H #15 tablet Forms: Patient Portal Access Time of Disposition: 00:44 Quality - Quality Measures Quality Measures: N/A - Blood Pressure Screening Does Patient Have Any of the Following: No Blood Pressure Classification: Normal BP Reading Systolic Measurement: 117 Diastolic Measurement: 74 Screening for High Blood Pressure: < Normal BP, F/U Not Required > [G8783]
[2018-02-11 21:41] LABS: BASO % 0.3 % (0-6); EOS % 1.8 % (0-6); GRAN % 67.9 % (47-80); HEMATOCRIT 40.3 % (35.0-47.0); HEMOGLOBIN 14.1 gm/dl (11.6-16.0); LYMPH % 24.2 % (16-45); MEAN CELL VOLUME 85.4 fl (81-97); MEAN CORPUSCULAR HEMOGLOBIN 29.9 pg (27-33); MEAN PLATELET VOLUME 10.2 fl (7.4-10.4); MONO % 5.8 % (0-9); PLATELET COUNT 245 K/uL (130-400); RED BLOOD COUNT 4.72 M/uL (3.80-5.40); RED CELL DISTRIBUTION WIDTH 12.7 % (11.5-14.5); WHITE BLOOD COUNT W/O DIFF 7.8 K/uL (4.2-12.2)
[2018-02-11 21:48] LABS: TOTAL PROTEIN 7.6 g/dL (6.6-8.7)
[2018-02-11 21:53] LABS: ALBUMIN 4.6 g/dL (4.0-5.0); ALKALINE PHOSPHATASE 244 U/L (35-104); ALT/SGPT 56 U/L (<33); AST/SGOT 35 U/L (10.0-35.0); BLOOD UREA NITROGEN 19 mg/dL (6-20); CREATININE 0.7 mg/dL (0.5-0.9); EST GLOMERULAR FILTRATION RATE > 60 mL/min
[2018-02-11 21:54] LABS: TOTAL PROTEIN 7.7 g/dL (6.6-8.7)
[2018-02-11 21:56] LABS: BILIRUBIN,DIRECT < 0.2 mg/dL (0-0.3)
[2018-02-11 21:58] LABS: ALT/SGPT 56 U/L (<33); GLUCOSE,RANDOM 640 mg/dL (74-109)
[2018-02-11 21:59] LABS: ALB/GLOB RATIO 1.5 (1.1-1.8); ALBUMIN 4.6 g/dL (4.0-5.0); ALKALINE PHOSPHATASE 248 U/L (35-104); AST/SGOT 35 U/L (10.0-35.0)
[2018-02-11 22:04] LABS: ACETAMINOPHEN < 5.0 ug/mL (10.0-30.0); SALICYLATE < 0.3 mg/dL (2.8-20)
[2018-02-11 22:04] LABS: URINE APPEARANCE SL CLOUDY; URINE BILIRUBIN NEGATIVE (NEGATIVE); URINE BLOOD NEGATIVE (NEGATIVE); URINE COLOR YELLOW; URINE KETONE 15 mg/dL (NEGATIVE); URINE LEUKOCYTE ESTERASE NEGATIVE (NEGATIVE); URINE NITRITE NEGATIVE (NEGATIVE); URINE PROTEIN NEGATIVE (NEGATIVE); URINE UROBILINOGEN 0.2 E.U./dL (0.20 - 1.00)
[2018-02-11 22:06] LABS: URINE GLUCOSE (UA) >=1000 mg/dL (NEGATIVE)
[2018-02-11] MEDS ORDERED: HUMULIN R 100 UNIT/ML VIAL SQ ONE ×2 (22:08→23:42)
[2018-02-11 22:09] LABS: HCG,QUALITATIVE URINE NEGATIVE (NEGATIVE)
[2018-02-11 22:10] LABS: AMPHETAMINE SCREEN URINE NOT DETECTED; BARBITURATE SCREEN URINE NOT DETECTED; BENZODIAZEPINE SCREEN URINE NOT DETECTED; COCAINE SCREEN URINE NOT DETECTED; METHADONE SCREEN URINE NOT DETECTED; METHAMPHETAMINE SCREEN NOT DETECTED; OPIATE SCREEN URINE DETECTED; OXYCODONE SCREEN URINE NOT DETECTED; PHENCYCLIDINE SCREEN URINE NOT DETECTED; PROPOXYPHENE SCREEN URINE NOT DETECTED; THC SCREEN URINE NOT DETECTED; TRICYCLIC ANTIDEPRESSANT SCRN NOT DETECTED
[2018-02-11 22:11] LABS: ACETONE,SERUM NEGATIVE (NEGATIVE)
[2018-02-11] MEDS ORDERED: CLONIDINE HCL 0.1 MG TABLET PO ONE (23:27)
[2018-02-11] MEDS ORDERED: LEVEMIR FLEXTOUCH 100 UNIT/ML INSULIN PEN SQ ONE ×2 (23:44→23:46)
[2018-02-12] MEDS ORDERED: ONDANSETRON 4 MG ODT TABLET SL ONE (00:46)
[2018-02-12] MEDS ORDERED: CLONIDINE HCL 0.1 MG TABLET PO ONE (00:46)
== END 2018-02-12 01:01 | disposition home or self-care (01) ==
LOC: ER 21:09
DX: E10.65 Type 1 diabetes mellitus with hyperglycemia (principal); R53.1 Weakness; R11.0 Nausea; F11.10 Opioid abuse, uncomplicated; F17.210 Nicotine dependence, cigarettes, uncomplicated; Z79.4 Long term (current) use of insulin
CPT/HCPCS: 36416; 80053; 80076; 80305; 80320; 80329; 81003; 81025; 82009; 82800; 82948; 85025; 96360; 96361; 96372; 99284; J7030

== ENCOUNTER 2018-05-04 11:38 | Emergency (ER) | payer SELFPAY ==
[2018-05-04] MEDS ORDERED: HUMULIN R 100 UNIT/ML VIAL SC ONE (11:39)
[2018-05-04] MEDS ORDERED: SODIUM CHLORIDE 0.9% 500 ML IV ONE (11:43)
--- NOTE | 2018-05-04 11:52 | Emergency Department Record ---
History of Present Illness - General Chief complaint: Hypergylcemia Stated complaint: HYPERGLYCEMIA/CONFUSION/WITHDRAWAL Time Seen by Provider: 05/04/18 11:43 Source: Family Mode of Arrival: Wheelchair Limitations: No limitations - History of Present Illness Initial comments: The patient is here with her father due to not feeling well for a few days to a week. She has a long hx of substance abuse and Diabetes Type 1 and recently lost her insurance and has run out of her regular doses of insulin. Her father who also is a diabetic has been giving her some Insulin that he provided for her. Additionally she has been unable to go to the Methadone clinic due to an unknown issue and may be also withdrawing from narcotics. She presently is very weak and having difficulty answering questions. MD Complaint: Generalized weakness Onset/Timin -: Week(s) Location: Generalized - Related Data Previous Rx's Medication Instructions Recorded Blood Sugar Diagnostic [Glucose 1 each MC QID #120 strip 02/03/17 Test Strip] Methadone HCl [Dolophine] 10 mg PO DAILY tablet 02/03/17 Syringe and Needle,Insulin,1Ml 1 each MC QID #120 disp.syrin 02/03/17 [Insulin Syringe] Clonidine HCl [Catapres] 0.1 mg PO BID #8 tablet 02/12/18 Ondansetron HCl [Zofran] 4 mg PO Q8H #15 tablet 02/12/18 Allergies Allergy/AdvReac Type Severity Reaction Status Date / Time No Known Drug Allergies Allergy Verified 11/08/16 19:32 Review of Systems ROS unobtainable: Due to mental status Past Medical History - SOCIAL HISTORY Smoking Status: Light tobacco smoker (<10/day) - RESPIRATORY Hx Respiratory Disorders: No - CARDIOVASCULAR Hx Cardio Disorders: No - NEURO Hx Neuro Disorders: No - GI Hx GI Disorders: No - Hx Genitourinary Disorders: No - ENDOCRINE Hx Endocrine Disorders: Yes Hx Diabetes: Yes (DM1) - MUSCULOSKELETAL Hx Musculoskeletal Disorders: No - PSYCH Hx Psych Problems: No - HEMATOLOGY/ONCOLOGY Hx Hematology/Oncology Disorders: No Family Medical History Hx Diabetes: Father *Diabetes Comment: DM1 Physical Exam - General Limitations: Altered mental status (The patient is awake but answering questions slowly. ) - Head Head exam: Atraumatic, Normocephalic Course - Reevaluation(s) Reevaluation #1: The patient is doing better slowly. She is more alert and now talking spontaneously. She is protecting her airway and her vital signs are normal. I did discuss with her father the need for transfer to a larger hospital and he chose [facility]. I then did discuss the case with Dr. Zavaleta in the ER and he does accept the patient in an ER to ER transfer. 05/04/18 12:52 Reevaluation #2: Dr. Zavaleta also would like an amp of Bicarb pushed very slowly so we will order that medicine. 05/04/18 12:54 Reevaluation #3: The patient is doing better. She is more alert and awake and denies any pain or discomfort. I did again discuss the plan with the patient and family. 05/04/18 13:11 Medical Decision Making - Data Complexity MDM Data: Labs Ordered and/or Reviewed, X-Ray Ordered and/or Reviewed - Lab Data Result diagrams: 05/04/18 11:55 05/04/18 11:55 - Radiology Data Radiology results: Report reviewed (CXR: Neg.) Critical Care Time Critical Care Time: Yes Total Critical Care Time: 45 Disposition Disposition: Transfer Clinical Impression: DKA, type 1 Qualifiers: Diabetes mellitus complication detail: without coma Qualified Code(s): E10.10 - Type 1 diabetes mellitus with ketoacidosis without coma Disposition: Acute Care Hospital Transfer Transfer To: [facility] Reason For Transfer: DKA Accepting Physician: Meghann. Time Discussed w/Accepting Physician: 12:54 Condition: (2) Stable Forms: Patient Portal Access Time of Disposition: 12:54 Quality - Quality Measures Quality Measures: N/A - Blood Pressure Screening View Details: Yes Does Patient Have Any of the Following: No Blood Pressure Classification: Normal BP Reading Systolic Measurement: 112 Diastolic Measurement: 78 Screening for High Blood Pressure: < Normal BP, F/U Not Required > [G8783]
[2018-05-04 11:58] LABS: URINE APPEARANCE CLEAR; URINE BILIRUBIN NEGATIVE (NEGATIVE); URINE BLOOD SMALL (NEGATIVE); URINE COLOR YELLOW; URINE KETONE 40 mg/dL (NEGATIVE); URINE LEUKOCYTE ESTERASE NEGATIVE (NEGATIVE); URINE NITRITE POSITIVE (NEGATIVE); URINE PROTEIN TRACE (NEGATIVE); URINE UROBILINOGEN 0.2 E.U./dL (0.20 - 1.00)
[2018-05-04 12:07] LABS: HEMATOCRIT 43.9 % (35.0-47.0); HEMOGLOBIN 14.1 gm/dl (11.6-16.0); MEAN CELL VOLUME 89.6 fl (81-97); MEAN CORPUSCULAR HEMOGLOBIN 28.8 pg (27-33); MEAN CORPUSCULAR HGB CONC 32.1 g/dl (32-36); MEAN PLATELET VOLUME 9.9 fl (7.4-10.4); PLATELET COUNT 383 K/uL (130-400); RED CELL DISTRIBUTION WIDTH 14.3 % (11.5-14.5)
[2018-05-04 12:09] LABS: URINE GLUCOSE (UA) >=1000 mg/dL (NEGATIVE); URINE RBC NONE SEEN (NONE SEEN)
[2018-05-04 12:10] LABS: HCG,QUALITATIVE URINE NEGATIVE (NEGATIVE); URINE BACTERIA FEW; URINE WBC 0 - 2 (0-2/hpf)
[2018-05-04 12:12] LABS: WHITE BLOOD COUNT W/O DIFF 37.4 K/uL (4.2-12.2)
[2018-05-04 12:19] LABS: CREATININE 1.3 mg/dL (0.5-0.9)
[2018-05-04 12:20] LABS: PLATELET ESTIMATE NORMAL (NORMAL); TOXIC GRANULATION 1+
[2018-05-04] MEDS ORDERED: HUMULIN R 100 UNIT/ML VIAL IV ONE (12:26)
[2018-05-04 12:29] LABS: AMPHETAMINE SCREEN URINE NOT DETECTED; BARBITURATE SCREEN URINE NOT DETECTED; BENZODIAZEPINE SCREEN URINE NOT DETECTED; COCAINE SCREEN URINE NOT DETECTED; METHADONE SCREEN URINE NOT DETECTED; METHAMPHETAMINE SCREEN NOT DETECTED; OPIATE SCREEN URINE NOT DETECTED; OXYCODONE SCREEN URINE NOT DETECTED; PHENCYCLIDINE SCREEN URINE NOT DETECTED; PROPOXYPHENE SCREEN URINE NOT DETECTED; THC SCREEN URINE NOT DETECTED; TRICYCLIC ANTIDEPRESSANT SCRN NOT DETECTED
[2018-05-04] MEDS ORDERED: INSULIN REGULAR, HUMAN 100 UNIT in 0.9 % SODIUM CHLORIDE 100ML 100 ML IV SCH ×2 (12:30)
[2018-05-04] MEDS ORDERED: SODIUM BICARBONATE 50MEQ SYRINGE IVP ONE (12:50)
--- NOTE | 2018-05-05 05:28 | RADIOLOGY REPORT ---
EXAM: CHEST, SINGLE VIEW HISTORY: HYPERGLYCEMIA, POSSIBLE DRUG USE. TECHNIQUE: A single AP view of the chest was obtained. Comparison: Chest radiograph 02/01/17. FINDINGS: The cardiac silhouette is within normal size limits. No focal pulmonary consolidation. No pleural effusion or pneumothorax. IMPRESSION: NO ACUTE LUNG FINDINGS. JOB NUMBER: [id number] MTDD
== END 2018-05-04 13:27 | disposition short-term general hospital (02) ==
LOC: ER 11:38
DX: E10.10 Type 1 diabetes mellitus with ketoacidosis without coma (principal); R41.82 Altered mental status, unspecified; R47.81 Slurred speech; R53.1 Weakness; R11.11 Vomiting without nausea; R19.7 Diarrhea, unspecified; Z79.4 Long term (current) use of insulin; F17.210 Nicotine dependence, cigarettes, uncomplicated
CPT/HCPCS: 99291 ×2; 96365; 96375; 96361; 83605; 82800; 80048; 81001; 82009; 81025; 80305; 85027; 71045; J1815